=== PATIENT | male | born 1955 | race Caucasian/White ===

== ENCOUNTER 2020-01-27 19:47 | Emergency (ER) | payer OTHER ==
[~2020-01-27] VITALS: Ht 160 cm; Wt 63.5 kg
[2020-01-27] MEDS ORDERED: COZAAR50 MG (20:29)
[2020-01-27] MEDS ORDERED: SYNTHROID50 MCG (20:29)
[2020-01-27] MEDS ORDERED: TAMS0.4C (20:30)
[2020-01-27] MEDS ORDERED: PROTONIX40 MG (20:30)
[2020-01-27] MEDS ORDERED: PLAVIX75 MG (20:30)
[2020-01-27] MEDS ORDERED: PROSCAR5 MG (20:30)
[2020-01-27] MEDS ORDERED: TOPROL XL25 M1 (20:31)
[2020-01-27] MEDS ORDERED: ZETIA10 MG (20:31)
[2020-01-27] MEDS ORDERED: ASPIR 8181 MG (20:31)
[2020-01-27] MEDS ORDERED: LIPITOR40 M1 (20:31)
[2020-01-27] MEDS ORDERED: MAGNESIUM400 M1 (20:31)
[2020-01-27] MEDS ORDERED: CENTRUM SILVER1 EAC2 (20:32)
[2020-01-28] MEDS ORDERED: FORTAMET1000 MG PO (01:17)
== END 2020-01-28 01:54 | disposition home or self-care (01) ==
LOC: ER 19:47
DX: E11.65 Type 2 diabetes mellitus with hyperglycemia (principal)